=== PATIENT | female | born 1950 | race Native Hawaiian/Other Pacific Islander ===

== ENCOUNTER 2016-11-30 10:01 | Outpatient (CLI) | payer OTHER | END 2016-11-30 19:13 | disposition home or self-care (01) | LOC: RESP 10:01 | DX: R06.02 Shortness of breath (principal) | CPT/HCPCS: 94640; 94664 ==

== ENCOUNTER 2016-12-14 10:20 | Outpatient (CLI) | payer OTHER | END 2016-12-14 19:06 | disposition home or self-care (01) | LOC: RAD 10:20 | DX: R06.02 Shortness of breath (principal) ==

== ENCOUNTER 2016-12-22 07:55 | Outpatient (CLI) | payer OTHER | END 2016-12-22 19:30 | disposition home or self-care (01) | LOC: CT 07:55 | DX: I27.2 Other secondary pulmonary hypertension (principal) | CPT/HCPCS: 36415; 82565; 84520; Q9963 ==

== ENCOUNTER 2017-04-24 13:04 | Outpatient (CLI) | payer OTHER | END 2017-04-24 19:37 | disposition home or self-care (01) | LOC: RAD 13:04 | DX: M05.79 Rheumatoid arthritis with rheumatoid factor of multiple sites without organ or systems involvement (principal) ==

== ENCOUNTER 2017-08-23 09:50 | Outpatient (CLI) | payer OTHER | END 2017-08-23 19:21 | disposition home or self-care (01) | LOC: RESP 09:50 | DX: J44.9 Chronic obstructive pulmonary disease, unspecified (principal) | CPT/HCPCS: 94640; 94664 ==

== ENCOUNTER 2017-10-26 09:00 | Outpatient (CLI) | payer OTHER | END 2017-10-26 23:56 | disposition home or self-care (01) | LOC: RESP 09:00 | DX: G47.30 Sleep apnea, unspecified (principal) | CPT/HCPCS: 36600; 82805 ==

== ENCOUNTER 2018-02-23 14:49 | Outpatient (CLI) | payer OTHER | END 2018-02-23 19:20 | disposition home or self-care (01) | LOC: CT 14:49 | DX: J44.9 Chronic obstructive pulmonary disease, unspecified (principal); R91.8 Other nonspecific abnormal finding of lung field ==

== ENCOUNTER 2018-07-23 11:07 | Outpatient (CLI) | payer OTHER | END 2018-07-23 19:47 | disposition home or self-care (01) | LOC: RAD 11:07 | DX: M05.79 Rheumatoid arthritis with rheumatoid factor of multiple sites without organ or systems involvement (principal) ==

== ENCOUNTER 2019-11-06 08:41 | Outpatient (CLI) | payer OTHER | END 2019-11-06 19:28 | disposition home or self-care (01) | LOC: RESP 08:41 | DX: J44.9 Chronic obstructive pulmonary disease, unspecified (principal) ==

== ENCOUNTER 2020-03-23 13:19 | Outpatient (CLI) | payer OTHER | END 2020-03-23 20:06 | disposition home or self-care (01) | LOC: CT 13:19 | DX: R91.1 Solitary pulmonary nodule (principal) ==

== ENCOUNTER 2020-07-27 13:22 | Outpatient (CLI) | payer OTHER | END 2020-07-27 19:13 | disposition home or self-care (01) | LOC: US 13:22 | PROVIDERS: ATTEND Internal Medicine Sleep Medicine | DX: R60.0 Localized edema (principal) ==

== ENCOUNTER 2022-12-29 12:07 | Outpatient (CLI) | payer OTHER | END 2022-12-29 17:00 | disposition home or self-care (01) | LOC: CT 12:07 | PROVIDERS: ATTEND Nurse Practitioner Family | DX: R91.8 Other nonspecific abnormal finding of lung field (principal) ==